=== PATIENT | male | born 1960 | race Hispanic/Latino ===

== ENCOUNTER 2017-08-07 16:06 | Outpatient (CLI) | payer OTHER | END 2017-08-07 16:07 | disposition home or self-care (01) | LOC: BICRAD 16:06 | PROVIDERS: ATTEND Family Medicine | DX: M25.462 Effusion, left knee (principal); M17.12 Unilateral primary osteoarthritis, left knee ==

== ENCOUNTER 2022-10-19 10:40 | Observation (INO) | payer BC ==
[~2022-10-19 10:40] MED LIST: Iopamidol-370 76% 500 ML MDV (1 ML CHARGE) ONE
[2022-10-19 11:14] LABS: #Monocytes 0.4 thou/uL (0.11-0.59); #Neutrophils 6.9 thou/uL (1.40-6.50); %Basophils 0.3 % (0.0-1.0); %Eosinophils 0.4 % (0.0-10.0); %Lymphocytes 22.7 % (21.0-51.0); %Neutrophils 72.2 % (42.0-75.0); Hematocrit 44.8 % (42.0-52.0); Hemoglobin 15.3 g/dL (14.0-18.0); Mean Corpuscular HGB CONC 34.2 g/dL (32.0-36.0); Mean Corpuscular Hemoglobin 32.6 pg (27.0-31.0); Mean Corpuscular Volume 95.5 fl (78.0-98.0); Mean Platelet Volume 11.9 fL (7.4-10.4); Platelet Count 156 10x3/uL (130-400); RBC Distribution Width 12.1 % (11.5-14.5); Red Blood Cell (RBC) Count 4.69 mill/uL (4.70-6.10); White Blood Cell (WBC) Count 9.6 10x3/uL (4.8-10.8)
[2022-10-19 11:30] LABS: INR-International Normal Ratio 0.9; PTT 25.7 sec (22.9-36.1); Prothrombin Time 12.8 sec (12.0-14.7)
[2022-10-19 11:40] LABS: ALT (SGPT) 10 U/L (8-55); AST (SGOT) 20 U/L (5-34); Albumin 4.4 g/dL (3.4-4.8); Alkaline Phosphatase 67 U/L (40-110); Anion Gap 16 mmol/L (10-20); BUN (Urea Nitrogen) 16 mg/dL (8.4-25.7); Bilirubin, Total 0.6 mg/dL (0.2-1.2); Calc. Creatinine Clearance 0 mL/min (70-130); Calcium 9.3 mg/dL (7.8-10.44); Carbon Dioxide 24 mmol/L (23-31); Estimated GFR 95; Globulin 2.9 g/dL (2.4-3.5); Glucose 190 mg/dL (80-115); Lipase 19 U/L (8-78); Magnesium 1.8 mg/dL (1.6-2.6); Protein, Total 7.3 g/dL (5.8-8.1)
[2022-10-19 11:45] LABS: Chloride 104 mmol/L (98-107); Sodium 140 mmol/L (136-145)
[2022-10-19] MEDS ORDERED: LORazepam 2 MG/ML SYR.(CARPUJECT) ONE (11:51)
[2022-10-19] MEDS ORDERED: Aspirin 325 MG TAB ONE (11:51)
[2022-10-19] MEDS ORDERED: Glucagon 1 MG/ML KIT IM PRN (12:20)
[2022-10-19] MEDS ORDERED: Bisacodyl 10 MG SUPP PR PRN (12:20)
[2022-10-19] MEDS ORDERED: Senokot S 8.6-50 MG TAB PO PRN (12:20)
[2022-10-19] MEDS ORDERED: HumaLOG 300 UNITS/3 ML VIAL SC PRN ×2 (12:20)
[2022-10-19] MEDS ORDERED: Bisacodyl 5 MG TAB PO PRN (12:20)
[2022-10-19] MEDS ORDERED: Ondansetron PF 4 MG/2 ML Vial IVP PRN (12:20)
[2022-10-19] MEDS ORDERED: Acetaminophen 325 MG TAB PO PRN (12:20)
[2022-10-19] MEDS ORDERED: Dextrose 50% Abboject 50 ML SYRINGE SLOW IVP PRN (12:20)
[2022-10-19] MEDS ORDERED: Dextrose 5% in Water 1,000 ML IV PRN (12:20)
[2022-10-19 12:57] LABS: Bacteria/HPF None Seen HPF (None Seen); Bilirubin Negative (Negative); Blood, Urine Negative (Negative); CAUTI Indications for Culture Dysuria,urgency,freq; Clarity Clear (Clear); Glucose, Urine (Dipstick) Normal (Negative); Ketone, Urine 10 mg/dL (Negative); Leukocyte Negative Leu/uL (Negative); Nitrite Negative (Negative); Protein, Urine (Dipstick) Negative (Neg-Trace); RBC/HPF 0-3 HPF (0-3); Squamous Epithelial None Seen HPF (0-3); Urobilinogen Normal mg/dL (Less than 2); WBC/HPF 0-3 HPF (0-3); pH, Urine 7.5 (5.0-9.0)
[2022-10-19 13:00] LABS: Specific Gravity, Urine Greater than 1.060 (1.002-1.036)
[2022-10-19 13:02] LABS: Urine Culture Reflex No No
[2022-10-19] MEDS ORDERED: Scopolamine 1.5 mg/72 hour Patch TD SCH (15:00)
[2022-10-19 18:34] VITALS: BMI 41.5
[2022-10-19] MEDS: Atorvastatin Calcium 40 MG TAB PO SCH (20:19)
[2022-10-19 21:18] LABS: SARS-CoV-2 NAA Rapid Test Not Detected (NotDetected)
[2022-10-20 05:25] LABS: #Eosinphils 0.2 thou/uL (0.0-0.7); #Monocytes 0.5 thou/uL (0.11-0.59); #Neutrophils 4.3 thou/uL (1.40-6.50); %Basophils 0.4 % (0.0-1.0); %Eosinophils 2.1 % (0.0-10.0); %Lymphocytes 34.7 % (21.0-51.0); %Monocytes 6.9 % (0.0-10.0); %Neutrophils 55.6 % (42.0-75.0); Hematocrit 39.9 % (42.0-52.0); Hemoglobin 13.5 g/dL (14.0-18.0); Mean Corpuscular HGB CONC 33.8 g/dL (32.0-36.0); Mean Corpuscular Hemoglobin 32.6 pg (27.0-31.0); Mean Corpuscular Volume 96.4 fl (78.0-98.0); Mean Platelet Volume 12.1 fL (7.4-10.4); RBC Distribution Width 12.2 % (11.5-14.5); Red Blood Cell (RBC) Count 4.14 mill/uL (4.70-6.10); White Blood Cell (WBC) Count 7.7 10x3/uL (4.8-10.8)
[2022-10-20 05:49] LABS: ALT (SGPT) 7 U/L (8-55); AST (SGOT) 13 U/L (5-34); Albumin 3.6 g/dL (3.4-4.8); Alkaline Phosphatase 66 U/L (40-110); Bilirubin, Direct 0.2 mg/dL (0.1-0.3); Bilirubin, Total 0.3 mg/dL (0.2-1.2); Platelet Count 135 10x3/uL (130-400); Protein, Total 6.3 g/dL (5.8-8.1)
[2022-10-20 05:51] LABS: Anion Gap 12 mmol/L (10-20); BUN (Urea Nitrogen) 11 mg/dL (8.4-25.7); Calc. Creatinine Clearance 141 mL/min (70-130); Calcium 8.8 mg/dL (7.8-10.44); Carbon Dioxide 26 mmol/L (23-31); Cardiac Risk 2.7 (Less than 4.5); Chloride 106 mmol/L (98-107); Cholesterol 109 mg/dl (< 200 Desired); Estimated GFR 98; Glucose 150 mg/dL (80-115); HDL Cholesterol 41 mg/dL (>60 Neg Risk); LDL Cholesterol, Calculated 51 mg/dL; Magnesium 1.8 mg/dL (1.6-2.6); Potassium 3.9 mmol/L (3.5-5.1); Sodium 140 mmol/L (136-145); Triglycerides 86 mg/dL (Less than 150)
[2022-10-20] MEDS: Aspirin 81 mg Enteric Coated Tablet PO SCH (09:07)
[2022-10-20] MEDS: Lisinopril 5 MG TAB PO SCH (09:07)
[2022-10-20] MEDS: Atorvastatin Calcium 40 MG TAB PO SCH (20:07)
[2022-10-21 05:10] LABS: #Eosinphils 0.3 thou/uL (0.0-0.7); #Monocytes 0.5 thou/uL (0.11-0.59); #Neutrophils 3.4 thou/uL (1.40-6.50); %Basophils 0.4 % (0.0-1.0); %Eosinophils 3.8 % (0.0-10.0); %Lymphocytes 39.9 % (21.0-51.0); %Monocytes 7.2 % (0.0-10.0); %Neutrophils 48.4 % (42.0-75.0); Hematocrit 40.2 % (42.0-52.0); Hemoglobin 13.5 g/dL (14.0-18.0); Mean Corpuscular HGB CONC 33.6 g/dL (32.0-36.0); Mean Corpuscular Hemoglobin 32.5 pg (27.0-31.0); Mean Corpuscular Volume 96.9 fl (78.0-98.0); Mean Platelet Volume 12.2 fL (7.4-10.4); Platelet Count 146 10x3/uL (130-400); RBC Distribution Width 12.3 % (11.5-14.5); Red Blood Cell (RBC) Count 4.15 mill/uL (4.70-6.10); White Blood Cell (WBC) Count 7.1 10x3/uL (4.8-10.8)
[2022-10-21 05:50] LABS: Anion Gap 11 mmol/L (10-20); BUN (Urea Nitrogen) 14 mg/dL (8.4-25.7); Calc. Creatinine Clearance 141 mL/min (70-130); Calcium 8.9 mg/dL (7.8-10.44); Carbon Dioxide 24 mmol/L (23-31); Chloride 106 mmol/L (98-107); Estimated GFR 98; Glucose 160 mg/dL (80-115); Potassium 3.8 mmol/L (3.5-5.1); Sodium 137 mmol/L (136-145)
[2022-10-21] MEDS: Lisinopril 5 MG TAB PO SCH (08:33)
[2022-10-21] MEDS: Aspirin 81 mg Enteric Coated Tablet PO SCH (08:33)
[2022-10-21 16:57] VITALS: BP 131/73; TEMP 97.8
== END 2022-10-21 17:15 | disposition home or self-care (01) ==
LOC: ERS 10:40 → ERHOLD 12:20 → 2SE 18:48
PROVIDERS: ADMIT Family Medicine; ATTEND Hospitalist
DX: R42 Dizziness and giddiness (principal); E11.9 Type 2 diabetes mellitus without complications; I10 Essential (primary) hypertension; I08.8 Other rheumatic multiple valve diseases; H55.00 Unspecified nystagmus; Z79.84 Long term (current) use of oral hypoglycemic drugs; Z79.82 Long term (current) use of aspirin; Z79.899 Other long term (current) drug therapy; Z95.0 Presence of cardiac pacemaker; Z88.2 Allergy status to sulfonamides
CPT/HCPCS: 36415; 36416; 70450; 70496; 70498; 71045; 80048; 80053; 80061; 80076; 81001; 82550; 83036; 83690; 83735; 84443; 85025; 85610; 85730; 93005; 96374; G0378; J1815; J2060; Q9967; U0002